=== PATIENT | female | born 1985 | race Caucasian/White ===

== ENCOUNTER 2019-04-21 20:28 | Emergency (ER) | payer OTHER ==
[~2019-04-21] VITALS: Ht 177.8 cm; Wt 120.2 kg
--- NOTE | 2019-04-21 20:33 | ED.ADGEN ---
Past History Past Medical History: Other Past Surgical History: TURP Alcohol Use: None Drug Use: None Adult General Chief Complaint Chief Complaint ".. I was using the margaret.. and caught the tip of my Lt index finger..." HPI HPI Patient is a 34 year old female who presents with above hx and complaints of laceration to Lt index finger 2 cm avulsion injury. Distal neurovascular intact. Patient up-to-date with vaccinations. No recent travel. No specific ill contacts. Patient normally follows at [facility]. Patient is right-hand dominant. No history immunosuppression. Review of Systems Review of Systems Constitutional: Denies fever or chills [] Eyes: Denies change in visual acuity, redness, or eye pain [] HENT: Denies nasal congestion or sore throat [] Respiratory: Denies cough or shortness of breath [] Cardiovascular: No additional information not addressed in HPI [] GI: Denies abdominal pain, nausea, vomiting, bloody stools or diarrhea [] : Denies dysuria or hematuria [] Musculoskeletal: Denies back pain or joint pain [] Integument: Denies rash or skin lesions []complaints of laceration index finger left hand Neurologic: Denies headache, focal weakness or sensory changes [] Endocrine: Denies polyuria or polydipsia [] All other systems were reviewed and found to be within normal limits, except as documented in this note. Family History Family History Noncontributory Current Medications Current Medications Current Medications Medications (Trade) Dose Ordered Sig/[place] Start Time Stop Time Status Last Admin Dose Admin Bacitracin (Bacitracin Topical Pkt) 1 pkt 1X ONCE 04/21/19 21:30 04/21/19 21:31 DC Cephalexin HCl (Keflex) 500 mg 1X ONCE 04/21/19 21:30 04/21/19 21:31 DC Diphtheria/ Tetanus/Acell Pertussis (Boostrix) 0.5 ml ONCE ONCE 04/21/19 21:30 04/21/19 21:31 DC 04/21/19 21:35 0.5 ML Trimethoprim/ Sulfamethoxazole (Bactrim Ds) 1 tab 1X ONCE 04/21/19 21:45 04/21/19 21:45 DC 04/21/19 21:40 1 TAB Allergies Allergies Allergies Coded Allergies Type Severity Reaction Last Updated Verified Cephalosporins Allergy Severe 04/21/19 Yes Physical Exam Physical Exam Constitutional: Well developed, well nourished, no acute distress, non-toxic appearance. [] HENT: Normocephalic, atraumatic, bilateral external ears normal, oropharynx moist, no oral exudates, nose normal. [] Eyes: PERRLA, EOMI, conjunctiva normal, no discharge. [] Neck: Normal range of motion, no tenderness, supple, no stridor. [] Cardiovascular:Heart rate regular rhythm, no murmur [] Lungs & Thorax: Bilateral breath sounds clear to auscultation [] Abdomen: Bowel sounds normal, soft, no tenderness, no masses, no pulsatile km s. [] Skin: Warm, dry, no erythema, no rash. [] Back: No tenderness, no CVA tenderness. [] Extremities: No tenderness, no cyanosis, no clubbing, ROM intact, no edema. [] Injury to left index finger as per history of present illness Neurologic: Alert and oriented X 3, normal motor function, normal sensory function, no focal deficits noted. [] Psychologic: Affect normal, judgement normal, mood normal. [] Current Patient Data Vital Signs Vital Signs Date Time Temp Pulse Resp B/P (MAP) Pulse Ox O2 Delivery O2 Flow Rate FiO2 04/21/19 20:51 98.0 82 18 95 Room Air EKG EKG [] Radiology/Procedures Radiology/Procedures [] Course & Med Decision Making Course & Med Decision Making Pertinent Labs and Imaging studies reviewed. (See chart for details) Laceration repair-clean finger soap and water. Betadine. Injected edge of laceration with lidocaine. Scrubbed laceration was scrubbed brush. Closed lac eration with Vicryl 4-0sutures 6. Patient keep finger clean and dry. Polysporin 4 times a day. Follow-up primary care. Take Tylenol and ibuprofen for pain. Take Bactrim ES twice a day. [] Final Impression Final Impression 1. Laceration[]- 2 cm left index finger Dragon Disclaimer Dragon Disclaimer This electronic medical record was generated, in whole or in part, using a voice recognition dictation system. Discharge Summary Visit Information Final Diagnosis Problems Medical Problems: (1) Laceration Status: Acute Brief Hospital Course Allergies Allergies Coded Allergies Type Severity Reaction Last Updated Verified Cephalosporins Allergy Severe 04/21/19 Yes Vital Signs Vital Signs Date Time Temp Pulse Resp B/P (MAP) Pulse Ox O2 Delivery O2 Flow Rate FiO2 04/21/19 20:51 98.0 82 18 95 Room Air Brief Hospital Course Ms. Drew is a 34 old female who presented with laceration distal tip Lt index. Discharge Information Condition at Discharge: Improved, Stable Disposition/Orders: D/C to Home Dischare Medications Current Medications Cephalexin HCl (Keflex) 500 mg 1X ONCE PO ; Start 04/21/19 at 21:30; Stop 04/21/19 at 21:31; Status DC Diphtheria/ Tetanus/Acell Pertussis (Boostrix) 0.5 ml ONCE ONCE VAX IM Last administered on 04/21/19at 21:35; Admin Dose 0.5 ML; Start 04/21/19 at 21:30; Stop 04/21/19 at 21:31; Status DC Bacitracin (Bacitracin Topical Pkt) 1 pkt 1X ONCE TP ; Start 04/21/19 at 21:30; Stop 04/21/19 at 21:31; Status DC Trimethoprim/ Sulfamethoxazole (Bactrim Ds) 1 tab 1X ONCE PO Last administered on 04/21/19at 21:40; Admin Dose 1 TAB; Start 04/21/19 at 21:45; Stop 04/21/19 at 21:45; Status DC Active Scripts Active Bactrim Ds Tablet (Sulfamethoxazole/Trimethoprim) 1 Each Tablet 1 Tab PO BID Keflex (Cephalexin) 500 Mg Capsule 500 Mg PO TID 7 Days Dragon Disclaimer This chart was dictated in whole or in part using Voice Recognition software in a busy, high-work load, and often noisy Emergency Department environment. It may contain unintended and wholly unrecognized errors or omissions. SMITH RUIZ MD Apr 21, 2019 20:33
[2019-04-21 20:51] VITALS: BP 138/87
[2019-04-21] MEDS ORDERED: CEPH-264 PO (21:29)
[2019-04-21] MEDS ORDERED: BACITRACIN ZINC TOPICAL OINT PACKET. TP ONE (21:30)
[2019-04-21] MEDS ORDERED: CEPHALEXIN 250 MG CAPSULE PO ONE (21:30)
[2019-04-21] MEDS ORDERED: SULF1TAB24 PO (21:35)
[2019-04-21] MEDS: DIPHTH,PERTUSS(ACELL),TET TOX 0.5 ML DISP.SYRIN. VAX IM ONE (21:35)
[2019-04-21] MEDS: SMZ/TMP 800/160MG TABLET. PO ONE (21:40)
== END 2019-04-21 21:39 | disposition home or self-care (01) ==
LOC: ER 20:28
DX: S61.211A Laceration without foreign body of left index finger without damage to nail, initial encounter (principal); Z88.1 Allergy status to other antibiotic agents; W27.8XXA Contact with other nonpowered hand tool, initial encounter; Y93.89 Activity, other specified; Y92.89 Other specified places as the place of occurrence of the external cause; Y99.8 Other external cause status
CPT/HCPCS: 12001; 90471; 90715; 99283